=== PATIENT | male | born 1965 | race Caucasian/White ===

== ENCOUNTER 2022-03-31 11:41 | Outpatient (CLI) | payer BC, SELFPAY ==
[2022-03-31 15:26] LABS: PSA Screen* 0.97 ng/mL (0.10-4.00)
[2022-04-01 06:36] LABS: Potassium* 4.4 mmol/L (3.6-5.1)
== END 2022-03-31 11:42 | disposition home or self-care (01) ==
PROVIDERS: PCP Family Medicine; Visit Provider Family Medicine
DX: Z12.5 Encounter for screening for malignant neoplasm of prostate (principal); Z13.9 Encounter for screening, unspecified
CPT/HCPCS: 84132; 84153

== ENCOUNTER 2022-06-06 15:08 | Emergency (ER) | payer OTHER, SELFPAY ==
[2022-06-06 15:17] VITALS: BP 134/97; PULSE 90; RESP 18; TEMP 36.3; O2SAT 95; BMI 28.7
--- NOTE | 2022-06-06 15:39 | CRLHL7_ITS ---
For Patients: As a result of the Cures Act, medical imaging exams and procedure reports are released immediately into your electronic medical record. You may view this report before your referring provider. If you have questions, please contact your health care provider. HISTORY: Left elbow pain. TECHNIQUE: Three views of the left elbow. COMPARISON: 05/29/2022. FINDINGS: Tiny ossicle associated with the coronoid process of the proximal ulna is unchanged. No acute fracture or malalignment. No posterior fat pad sign to suggest elbow joint effusion. No significant degenerative change. No radiopaque foreign body or soft tissue gas. IMPRESSION: 1. Tiny ossicle associated with the coronoid process of the proximal ulna is unchanged. 2. No acute fracture or malalignment. 3. Joint space maintained. Dictated by Norberto Gamez MD @ 06/06/2022 4:10:06 PM Dictated by: Norberto Gamez MD @ 06/06/2022 16:11:35 (Electronically Signed)
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
== END 2022-06-06 17:16 | disposition home or self-care (01) ==
PROVIDERS: Emergency Provider Family Medicine; PCP Family Medicine
DX: S53.402A Unspecified sprain of left elbow, initial encounter (principal)
CPT/HCPCS: 73080; 99283; 99284

== ENCOUNTER 2022-06-30 11:35 | Outpatient (CLI) | payer OTHER, BC, SELFPAY ==
[2022-06-30 21:48] LABS: Albumin* 4.5 g/dL (3.3-5.0); Chloride* 104 mmol/L (96-114); Potassium* 4.7 mmol/L (3.6-5.1); Sodium* 140 mmol/L (135-149)
[2022-06-30 21:50] LABS: Cholesterol* 152 mg/dL (90-199); Creatinine* 1.2 mg/dL (0.5-1.5); Estimated Glomerular Filt Rate 71 ml/min
[2022-06-30 21:51] LABS: Alanine Aminotransferase* 28 U/L (4-50); Alkaline Phosphatase* 81 U/L (40-150); Aspartate Amino Transferase* 26 U/L (12-35); Bilirubin Total* 1.2 mg/dL (0.1-1.5); Blood Urea Nitrogen* 16 mg/dL (7-30); Carbon Dioxide* 30 mmol/L (20-32); Glucose* 89 mg/dL (60-115); Total Protein* 7.1 g/dL (6.0-8.3); Triglycerides* 164 mg/dL (40-149)
[2022-06-30 21:52] LABS: Calcium* 9.4 mg/dL (8.4-10.6); HDL Cholesterol* 37 mg/dL (>=40); LDL Cholesterol Calculated 82 mg/dL (<100)
[2022-07-02 23:55] LABS: Sex Hormone Binding Globulin 33 nmol/L (19-76); Testosterone, Adult Male 291 ng/dL (300-890); Testosterone, Free Calculation 52 pg/mL (47-244); Testosterone, Percentage Free 1.8 % (1.6-2.9)
== END 2022-06-30 11:36 | disposition home or self-care (01) ==
PROVIDERS: PCP Family Medicine; Visit Provider Family Medicine
DX: Z01.818 Encounter for other preprocedural examination (principal); E29.1 Testicular hypofunction; E78.00 Pure hypercholesterolemia, unspecified; I10 Essential (primary) hypertension
CPT/HCPCS: 80053; 80061; 84270; 84402; 84403

== ENCOUNTER 2022-07-06 07:12 | Day surgery (SDC) | payer BC, SELFPAY ==
[2022-07-06] VITALS (13 sets, daily range): BP systolic 101–135; BP diastolic 72–100; PULSE 66–85; RESP 16; TEMP 36.6; O2SAT 92–98; BMI 29.2
[2022-07-06] MEDS: LACTATED RINGERS 1000 ML 1,000 ML 100 ML IV (07:40)
[2022-07-06] MEDS: SODIUM CHLORIDE 0.9 % (FLUSH) 10 ML SYRINGE IVF (07:40)
--- NOTE | 2022-07-06 07:51 | SUR.PREOP ---
HOME COVID TEST NEGATIVE DONE ON 07/05/22.
[2022-07-06] MEDS: fentaNYL 100 MCG/2 ML inj IVP (08:08)
[2022-07-06] MEDS: MIDAZOLAM HCL 1 MG/ML inj IVP (08:08)
--- NOTE | 2022-07-06 08:10 | SUR.PREOP ---
TIME?OUT:?0808 PT/RN/MDA?VERIFICATION?OF?SURGICAL?SITE,?PROCEDURE,?AND?CONSENT OBTAINED?PRIOR?TO?INVASIVE?PROCEDURE.
--- NOTE | 2022-07-06 09:12 | CRLHL7_ITS ---
For Patients: As a result of the Cures Act, medical imaging exams and procedure reports are released immediately into your electronic medical record. You may view this report before your referring provider. If you have questions, please contact your health care provider. Indication: intra op left open distal bicep tendon repair Technique: One fluoroscopic image of the left elbow. Fluoroscopic time 2.5 seconds. IMPRESSION: Fluoroscopic guidance for distal biceps tendon repair. Dictated by Juan Plata MD @ 07/06/2022 2:36:38 PM (Electronically Signed)
[2022-07-06] MEDS: CEFAZOLIN 2 GM in 0.9 % SODIUM CHLORIDE Mini-bag 100 ML IVPB (09:40)
--- NOTE | 2022-07-06 10:35 | PM.ORPRC ---
Procedure Note Date of procedure: 07/06/22 Procedure: PREOPERATIVE DIAGNOSIS: 1. Left distal biceps rupture, subacute POSTOPERATIVE DIAGNOSIS: 1. Left distal biceps rupture, subacute PROCEDURE: 1. Left open distal biceps repair 2. 33949 - intraoperative fluoroscopy up to 1 hour. SURGEON: Salvador Campuzano MD LITHOPONE MILL WORKER: Efrain AGUILA (Of note, use of an assistant commissioner was critical for this case to aid in patient positioning, tissue retraction, nerve protection, arm positioning, suture management, and closure as well as splint application.) ANESTHESIA: Supraclavicular block plus MAC EBL: less than 25 TOURNIQUET: 40 minutes at 250 torr IMPLANTS: Arthrex tension slide distal Biceps Button with Peek interference screw 7 x 10mm. COMPLICATIONS: None evident INDICATIONS FOR PROCEDURE: The patient is a pleasant 56-year-old male, right hand dominant. They sustained an injury to the left distal biceps within last 1 month. Upon evaluation, they were found to have pain upon palpation near the radial tuberosity. Additionally, an MRI was obtained which showed full-thickness distal biceps tear with 1 cm of retraction of the distal stump. Given the patient's use of this extremity, recommendation was made for surgery. DESCRIPTION OF PROCEDURE: Following a thorough discussion of the risks, benefits and alternatives, consent was obtained and the left forearm was marked. The patient was brought to the operating room, placed supine on the operating table. Induction of general anesthesia was undertaken after a supraclavicular block was administered in the preop holding. Appropriate time out was performed to identify proper patient, site and procedure. The operative upper extremity was prepped and draped in the appropriate sterile fashion using ChloraPrep prep. The limb was exsanguinated and the tourniquet inflated to 250 Torr after 2 g IV Ancef was administered within 1 hour of incision preoperatively. A transverse incision was made in line with the antecubital fossa crease approximately 4 cm distal to the crease itself. Sharp incision through the skin and blunt dissection through the subcutaneous tissue allowed protection of crossing neurologic and vascular structures. Blunt dissection was taken deep for identification of the radial tuberosity. Additionally, the lateral antebrachial cutaneous nerve was identified and protected throughout the case. We then turned our attention to retrieving the biceps stump. The stump was near its insertion site, but was retracted a one cm. The stump was assessed, and found to have [good integrity. It was whipstitched utilizing a #2 FiberLoop suture to get a strong hold on the tendon. The tendon diameter was measured and found to be a diamter of 7mm. We brought the tendon back down through the typical deeper planes and deep to crossing vascularity to eventually reattach to the bicipital tuberosity. The insertion site was then prepared using a Joker elevator and rongeur. A guide pin was utilized bicortical, and an 8.0 mm reamer was then used unicortically after confirming on C-arm fluoroscopic imaging to be in appropriate position at the radial tuberosity. The suture tails were then passed through the tension slide button and the button passed through the bicortical tunnel, and flipped. It was confirmed on C-arm fluoroscopic imaging to be in the proper position and flipped completely and apposed against bone. We then utilized this tension slide manner to reapproximate the tendon to the reamed hole. Once the tendon was dunked, with the elbow flexed to roughly 90 degrees, we passed one of the limbs of the suture through the tendon and tied it with a knot pusher with 6 alternating half hitches with post switching to secure it and prevent it from sliding off the tension slide button. We then utilized the interference screw as a secondary mechanism to secure the tendon.. The tourniquet was deflated and hemostasis achieved. A thorough irrigation with normal saline was then performed followed by closure with 2-0 Vicryl and 4-0 Monocryl in subcutaneous and subcuticular layers. Dressings were applied. Posterior splint was applied. Patient awoke from anesthesia and was transferred to the Post-Anesthesia Care Unit in stable condition. PLAN: 1. Ice and elevate operative upper extremity. 2. Finger range of motion as tolerated. 3. Follow up with PA visit in 3-5 days. Wound check. Active range of motion operative elbow and forearm as tolerted. lift nothing more than a coffee cup x 8 weeks. 4. Ibuprofen, Tylenol, and/or Percocet for pain as needed.
--- NOTE | 2022-07-06 10:53 | W.ANESCHARGE ---
Anesthesia Charges Start Date/Time Anesthesia Start Date: 07/06/22 Anesthesia Start Time: 09:32 Stop Date/Time Anesthesia Stop Date: 07/06/22 Anesthesia Stop Time: 10:51 Summary Emergency: No
--- NOTE | 2022-07-06 11:00 | W.ANESCHARGE ---
Anesthesia Charges Start Date/Time Anesthesia Start Date: 07/06/22 Anesthesia Start Time: 09:32 Stop Date/Time Anesthesia Stop Date: 07/06/22 Anesthesia Stop Time: 10:51 Summary Emergency: No
--- NOTE | 2022-07-06 11:01 | P.NB_ITS ---
Nerve Block Nerve Block Time Seen by Provider: 08:13 Date Seen: 07/06/22 Type of block requested by surgeon for post-operative analgesia: axillary Side: left Time out performed: Yes Verification of patient name: Yes Verification of date of : Yes Site marking: site marked Name of person performing procedure: Sadi Continuous monitoring Was continuous monitoring of O2 sat, B/P, vehicle monitor technician, recorded every 15 minutes?: Yes Procedure Checklist: sterile prep, needles and gloves Ultrasound guided. Images saved: Yes Medications given in 5ml increments after negative aspiration: Ropivicaine %: 0.5 mL: 30 Needle gauge: 22 Patient tolerated procedure well: Yes Additional comments: Needle noted adjacent to nerve Block Charges Block Charge (with Pro Fee): Brachial Plexus Use of Ultrasound Machine for Block: Yes- US Guidance/pain block
== END 2022-07-06 12:05 | disposition home or self-care (01) ==
PROVIDERS: PCP Family Medicine; Visit Provider Orthopaedic Surgery Sports Medicine
PROC: (CPT 24341; principal; 2022-07-06 08:30)
DX: S46.212A Strain of muscle, fascia and tendon of other parts of biceps, left arm, initial encounter (principal)
CPT/HCPCS: 24341; 01716; 64415; 73070; 76000; 76942; A4580; C1713; J0690; J1100; J2250; J2370; J2405; J2704; J2795; J3010; J7120

== ENCOUNTER 2022-11-19 10:28 | Outpatient (CLI) | payer BC, SELFPAY | END 2022-11-19 10:29 | disposition home or self-care (01) | LOC: NFLDREF 11-23 09:05 | PROVIDERS: PCP Family Medicine; Referring Provider Family Medicine; Visit Provider Family Medicine | DX: R79.89 Other specified abnormal findings of blood chemistry (principal); E78.00 Pure hypercholesterolemia, unspecified; E29.1 Testicular hypofunction | CPT/HCPCS: 84270; 84402; 84403 ==

== ENCOUNTER 2023-04-01 07:57 | Outpatient (CLI) | payer BC, SELFPAY | END 2023-04-01 07:58 | disposition home or self-care (01) | LOC: NFLDREF 04-05 12:54 | PROVIDERS: PCP Family Medicine; Referring Provider Family Medicine; Visit Provider Family Medicine | DX: E29.1 Testicular hypofunction (principal); E78.00 Pure hypercholesterolemia, unspecified; I10 Essential (primary) hypertension; I49.9 Cardiac arrhythmia, unspecified; Z12.5 Encounter for screening for malignant neoplasm of prostate | CPT/HCPCS: 80053; 84153; 84270; 84402; 84403; 84443 ==

== ENCOUNTER 2023-04-23 09:41 | Outpatient (CLI) | payer BC, SELFPAY | END 2023-04-23 09:42 | disposition home or self-care (01) | LOC: RAD 09:42 | PROVIDERS: PCP Family Medicine; Visit Provider Family Medicine | DX: I49.9 Cardiac arrhythmia, unspecified (principal); I35.1 Nonrheumatic aortic (valve) insufficiency; I34.0 Nonrheumatic mitral (valve) insufficiency | CPT/HCPCS: 93306 ==

== ENCOUNTER 2023-12-24 08:09 | Outpatient (CLI) | payer BC, SELFPAY | END 2023-12-24 08:10 | disposition home or self-care (01) | LOC: NFLDREF 12-28 16:51 | PROVIDERS: PCP Family Medicine; Referring Provider Family Medicine; Visit Provider Family Medicine | DX: Z00.00 Encounter for general adult medical examination without abnormal findings (principal); I10 Essential (primary) hypertension; E29.1 Testicular hypofunction; R79.89 Other specified abnormal findings of blood chemistry; Z12.5 Encounter for screening for malignant neoplasm of prostate; Z13.1 Encounter for screening for diabetes mellitus; Z13.6 Encounter for screening for cardiovascular disorders | CPT/HCPCS: 80053; 80061; 84270; 84402; 84403; G0103 ==

== ENCOUNTER 2024-04-13 08:12 | Outpatient (CLI) | payer BC, SELFPAY ==
--- OUTSIDE RECORDS SUMMARY | 2024-04-16 18:57 | XMS_ITS | Clinical Summary ---
Author Organization [facility] Address [address] [place] [id number] Care Team Providers Care Personal Driver Name Role Phone Unavailable Primary Care Provider Unavailabl e Allergies Active Allergy Reactions Criticality Noted Date Comments Esomeprazole Magnesium Trihydrate nexium-rash Omeprazole Rash Low 01/29/2014 Medications Medication Sig Dispensed Refills Start Date End Date Status RABEprazole (ACIPHEX) 20 MG EC tabletIndications:Gas troesophageal reflux disease with esophagitis Take 1 tablet (20 mg) by mouth 2 times daily 180 tablet 4 08/09/2017 Active ranitidine (ZANTAC) 150 MG tablet take 1 tablet by mouth before bed 3 03/24/2019 Active hydrochlorothiazide (HYDRODIURIL) 12.5 MG tabletIndications:Hyp ertension goal BP (blood pressure) < 140/90 Take 1 tablet (12.5 mg) by mouth daily 90 tablet 3 04/10/2019 Active guaiFENesin-codeine (ROBITUSSIN AC) 100-10 MG/5ML solutionIndications:C ough Take 5-10 mLs by mouth every 4 hours as needed 120 mL 08/05/2019 Active albuterol (PROAIR HFA/PROVENTIL HFA/VENTOLIN HFA) 108 (90 Base) MCG/ACT inhalerIndications:Co ugh Inhale 2 puffs into the lungs every 6 hours 1 Inhaler 08/05/2019 Active amLODIPine (NORVASC) 5 MG tabletIndications:Hyp ertension goal BP (blood pressure) < 140/90 Take 1 tablet (5 mg) by mouth daily 90 tablet 04/01/2020 Active Active Problems Problem Noted Date Diagnosed Date Persistent cough 08/15/2018 Lumbar radiculopathy 10/31/2015 GERD (gastroesophageal reflux disease) 4 Hypertension goal BP (blood pressure) < 140/90 0 10/23/2013 Resolved Problems Problem Noted Date Diagnosed Date Resolved Date Right elbow pain 11/03/2016 11/17/2016 Chronic pain 04/29/2016 08/06/2017 Overview: Patient is followed by David Ventura MD for ongoing prescription of pain medication. All refills - From ortho Medication(s): see refill list from ortho Maximum quantity per month: see refill Clinic visit frequency required: Q 3 months Controlled substance agreement: Encounter-Level CSA: There are no encounter-level csa. Pain Clinic evaluation in the past: No DIRE Total Score(s): No flowsheet data found. Last [facility] website verification: none [email or web address] Midline low back pain with s ciatica, sciatica laterality unspecified 10/10/2015 08/06/2017 HTN, goal below 140/90 08/17/201110/23 Impetigo 08/17/2011 10/23/2013 Cellulitis, face 08/17/2011 10/23/2013 Hypercholesteremia 10/10/2010 4 Essential hypertension, benign 10/10/2010 10/23/2013 CARDIOVASCULAR SCREENING; LD L GOAL LESS THAN 130 05/18/2010 07/30/2015 Esophageal reflux 07/12/2006 10/23/2013 Immunizations Name Administration Dates Next Due Influenza Vaccine, 6+MO IM ( QUADRIVALENT W/PRESERVATIVES) 05/31/2018 TDAP Vaccine (Adacel) 01/25/2019,08/15/2008 Family History Medical History Relation Comments Hypertension Mother Diabetes Paternal Grandfather Prostate Cancer Paternal Grandfather Colon Cancer No family hx of Relation Status Comments Father Alive Mother Alive Paternal Grandfather Social History Tobacco Use Types Packs/Day Years Used Date Smoking Tobacco: Former Cigarettes 1 7 0 12/17/1982 - 12/17/1989 Smokeless Tobacco: Never Alcohol Use Standard Drinks/Week Comments Yes 2 (1 standard drink = 0.6 oz pur e alcohol) PHQ-2 Answer Date Recorded PHQ-2 Score 0 07/26/2018 Adolescent Education Answer Date Record ed Getting School Help Needed Not on file 04/18 Sex and Gender Information Value Date Recorded Sex Assigned at Not on file Gender Identity Not on file Sexual Orientation Not on file Last Filed Vital Signs Vital Sign Reading Time Taken Comments Blood Pressure 136/86 08/05/2019 3:40 PM SENIOR LOAN PROCESSOR Pulse 90 08/05/2019 3:40 PM SENIOR LOAN PROCESSOR Temperature 37.5 ??C (99.5 ??F) 08/05/2019 3:40 PM CS T Respiratory Rate 16 08/05/2019 3:40 PM SENIOR LOAN PROCESSOR Oxygen Saturation 100% 08/05/2019 3:40 PM SENIOR LOAN PROCESSOR Inhaled Oxygen Concentration - - Weight 91.6 kg (202 lb) 08/05/2019 3:40 PM SENIOR LOAN PROCESSOR Height 177.8 cm (5' 10) 04/10/2019 1:45 PM CDT Body Mass Index 28.98 04/10/2019 1:45 PM CDT Plan of Treatment Not on file Medical Devices Implanted Type Area Aerospace Project Manager Device Identifier Shelf Expiration Date Model / Serial / Lot Graft Bone Foam Pack Vitoss 5ml Bio Active Implanted:Qty : 1 on 10/31/2015 by Greg Zuniga MD at [facility] N/A: Spine Lumbar ORTHOVITA 02/15/[id number] / / [id number] Impulse Implanted:Qty : 1 on 10/31/2015 by Grge Zuniga MD at [facility] N/A: Spine Lumbar Graft Bone Crush Canc 15ml [id number] Implanted:Qty : 1 on 10/31/2015 by Greg Zuniga MD at [facility] N/A: Spine Lumbar [employer]OSKE[employer] 07/02/2018 [id number] / [id number] / Graft Allograft Nucel Xl 2.5ml [id number] Implanted:Qty : 1 on 10/31/2015 by Greg Zuniga MD at [facility] N/A: Spine Lumbar [employer] 03/21/2016 NC-[id number] / [id number] / Imp Cage Strk [place]-L [id number] Implanted:Qty : 1 on 10/31/2015 by Greg Zuniga MD at [facility] N/A: Spine Lumbar [employer] [id number] / / [id number] Imp Scr Strk Bone [place]-L 6.0x30mm [id number] Implanted:Qty : 3 on 10/31/2015 by Greg Zuniga MD at [facility] N/A: Spine Lumbar [employer] [id number] / / [id number] Imp Plate Strk [place]-L Locking [id number] Implanted:Qty : 1 on 10/31/2015 by Greg Zuniga MD at [facility] N/A: Spine Lumbar [employer] [id number] / / 5 [id number] 7.5mm X 50 Mmes2 Short Screw Implanted:Qty : 2 on 10/31/2015 by Greg Zuniga MD at [facility] N/A: Spine Lumbar CATHY / / [id number] 40mm Vahid Implanted:Qty : 1 on 10/31/2015 by Greg Zuniga MD at [facility] N/A: Spine Lumbar CATHY [id number] / / [id number] Blockers Implanted:Qty : 2 on 10/31/2015 by Greg Zuniga MD at [facility] N/A: Spine Lumbar CATHY [id number] / / [id number] Advance Directives For more information, please contact: [phone] * Full Code (Latest Code Status on File) Date Activated Date Inactivated Comments 10/31/2015 1:34 PM 11/01/2015 10:52 PM
--- OUTSIDE RECORDS SUMMARY | 2024-04-16 18:57 | XMS_ITS | Encounter Summary ---
Author Organization [facility] Address [address] [place] [address] Care Team Providers Care Pan Devulcanizer Name Role Phone David Ventura MD Primary Care Provider [phone] David Ventura MD Unavailable [phone] Encounter Details Date Type Department Care Team (Late st Contact Info) Description 05/30/[address] [facility] [id number] [place] [phone] [place] [address] [place] [address] Social History Tobacco Use Types Packs/Day Years Used Date Smoking Tobacco: Former Cigarettes 1 7 0 12/17/1982 - 12/17/1989 Smokeless Tobacco: Never Alcohol Use Standard Drinks/Week Comments Yes 2 (1 standard drink = 0.6 oz pur e alcohol) PHQ-2 Answer Date Recorded PHQ-2 Score 0 07/26/2018 Sex and Gender Information Value Date Recorded Sex Assigned at Not on file Gender Identity Not on file Sexual Orientation Not on file documented as of this encounter Plan of Treatment Not on file documented as of this encounter Visit Diagnoses Not on filedocumented in this encounter Care Teams Pan Devulcanizer Relationship Specialty Start Date End Date David Ventura MD PCP - General Family Practice 03/14/14 05/17/22 [place] [address] [place] [address] Assigned PCP 11/15/13 04/03/22 documented as of this encounter
--- OUTSIDE RECORDS SUMMARY | 2024-04-16 18:57 | XMS_ITS | Encounter Summary ---
Author Organization [facility] Address [address] [place] [address] Care Team Providers Care Software Verification Engineer Name Role Phone David Ventura MD Primary Care Provider [phone] David Ventura MD Unavailable [phone] David Ventura MD Unavailable [phone] Reason for Visit * Reason Onset Date Comments MyChart Communication 08/07/2017 Encounter Details Date Type Department Care Team (Late st Contact Info) Description 08/07/2017 MyC Medical Advice [facility] [address] [place] [phone] [place] [address] [place] [address] MyChart Communication Social History Tobacco Use Types Packs/Day Years Used Date Smoking Tobacco: Former Cigarettes 1 7 0 12/17/1982 - 12/17/1989 Smokeless Tobacco: Never Alcohol Use Standard Drinks/Week Comments Yes 0 (1 standard drink = 0.6 oz pur e alcohol) Sex and Gender Information Value Date Recorded Sex Assigned at Not on file Gender Identity Not on file Sexual Orientation Not on file documented as of this encounter Miscellaneous Notes * Telephone Encounter - David Ventura MD - 08/09/2017 7:37 AM CST Can try BID for 1-2 months - this is not recommended dose for long-term use, however. Should go back to daily after 1-2 months. If continues to have breakthrough symptoms I would recommend upper endoscopy. AL VAULT MAKER * Telephone Encounter - Estelle Beard RN - 08/09/2017 7:24 AM CST Please advise. Do you want an appt to discuss this? Estelle Beard RN, BSN AL VAULT MAKER documented in this encounter Plan of Treatment Not on file documented as of this encounter Visit Diagnoses Diagnosis Gastroesophageal reflux disease with esophagitis documented in this encounter Care Teams Software Verification Engineer Relationship Specialty Start Date End Date David Ventura MD PCP - General Family Practice 03/14/14 05/17/22 [place] [address] [place] [address] PCP - Assigned PCP 11/15/13 09/20/18 [place] [id number] [place] [address] Assigned PCP 11/15/13 04/03/22 documented as of this encounter
--- OUTSIDE RECORDS SUMMARY | 2024-04-16 18:57 | XMS_ITS | Continuity of Care Document ---
Author Name [facility] Organization [facility] Care Team Providers Care Supervisor [place] Name Role Phone [facility] Unavailable Unavailable Problems Combined list of problems from Department of Defense and Veterans Affairs facilities. It does not include entries that were removed or entered in error. 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 Condition [facility] Body mass index 25-29 - overweight Active Condition Oct 02, 2022 En tered By: CARISSA BACON Comment: to complete SLEEP STUDY [facility] Exposure to Potentially Hazardous Substance ([facility] [place] [id number] ) Active Condition Oct 04, 2022 En tered By: CARISSA BACON Comment: was exposed to paint, jet fuel, oils and has had sound exposure [facility] Family social history Active Condition Oct 02, 2022 En tered By: CARISSA BACON Comment: 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, 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 Deployed to [employer] for short time [facility] H/O: surgery Active Condition Oct 03, 2021 Entered By: CARISSA BACON Comment: s/p endoscopy at [facility] 09/25/2021Oct 02, 2022 Entered By: CARISSA BACON Comment: colonoscopy normal at age 51 reports recheck is due at age 61Oct 10, 2021 Entered By: CARISSA BACON Comment: s/p L4-5 Decompressive lumbar laminectomyOct 10, 2021 Entered By: CARISSA BACON Comment: S/p Tonsillectomy, Uvulopalatopharyngoplast [id number] Entered By: CARISSA BACON Comment: s/p turbinate reduction 2022 Entered By: CARISSA BACON Comment: S/P HIATAL HERNIA REPAIR- FUNDAL PLICATION at [facility] 2022 Entered By: CARISSA BACON Comment: s/p LEFT Elbow tendon repair 06/2022 [facility] Hiatal hernia Active Condition Sep Entered By: CARISSA BACON Comment: s/p FUNDAL PLICATION 11/2021 [facility] HTN - Hypertension ([facility] [place] [id number]) Active Condition Oct 13, 2022 Entered By: CARISSA BACON Comment: SLEEP CONSULT REQUESTED 09/2022 [facility] Hyperlipidemia (SCT [id number]) Active Condition [facility] Kidney Stone ([facility] [place] [id number]) Active Condition [facility] Male hypogonadism Active Condition Mar 06, 2024 En tered By: CARISSA BACON Comment: [facility]aged [facility] Palpitations Active Condition Oct 13, 2022 Entered By: CARISSA BACON Comment: SEE RESULT Letter 10/13/22 for ZIO REPORT [facility] Tinnitus Active Condition Jan 02 Entered By: CARISSA BACON Comment: TOTAL SC 10%; TINNITUS (10%-SC) [facility] Diagnosis: ICD-10-CM E29.1 Testicular hypofunction Active Diagnosis [facility] Diagnosis: ICD-10-CM Z00.01 Encounter for general adult medical exam w abnormal findings Active Diagnosis [facility] Diagnosis: ICD-10-CM R00.2 Palpitations Active Diagnosis [facility] Diagnosis: ICD-10-CM Z23 Encounter for immunization Active Diagnosis [facility] Diagnosis: ICD-10-CM Z13.6 Encounter for screening for cardiovascular disorders Active Diagnosis [facility] Medications Combined list of outpatient medications from Department of Defense and Veterans Affairs facilities.Medications provided include 1) outpatient medications from the last 15 months, and 2) patient-reported medications. Medication Details Route Status Patient Instructions Prescription Expires Prescription Number Last Dispense Date Ordering Provider Order Date Order Qty Source AMLODIPINE BESYLATE 10MG TAB AMLODIPI NE BESYLATE 10MG TAB Non-VA TAKE ONE TABLET BY MOUTH EVERY DAY FOR BLOOD PRESSURE Oct 01, 2023 [facility] Document ed by: GLORIA BACON S Document ed at: [facility] ORAL ACTIVE TIANA BACON 2023 [facility] RABEPRAZOLE NA 20MG TAB,EC RABEPRAZ OLE NA 20MG TAB,EC Non-VA TAKE ONE TABLET BY MOUTH EVERY DAY Oct 03, 2021 Non-VA Document ed by: GLORIA BACON S Document ed at: [facility] BROOKS ORAL ACTIVE TIANA BACON 2021 [facility] SIMVASTATIN 20MG TAB SIMVASTA TIN 20MG TAB Non-VA TAKE ONE TABLET BY MOUTH AT BEDTIME FOR CHOLESTE ROL Oct 01, 2023 Non-VA Document ed by: GLORIA BACON S Document ed at: [facility] BROOKS ORAL ACTIVE TIANA BACON 2023 [facility] TESTOSTERON E CYPIONATE 200MG/ML INJ,1ML (IN OIL) TESTOSTE CAROLE CYPIONAT E 200MG/ML INJ,1ML (IN OIL) Non-VA INJECT 0.5ML (100MG) INTRAMUS CULAR EVERY 4 WEEKS Oct 03, 2021 Non-VA Document ed by: GLORIA BACON S Document ed at: [facility] BROOKS INTRAM USCULA R ACTIVE TIANA BACON 2021 [facility] VALSARTAN 80MG TAB VALSARTA N 80MG TAB Non-VA TAKE ONE TABLET BY MOUTH EVERY DAY FOR HEART PROTECTI ON Oct 01, 2023 Non-VA Document ed by: GLORIA BACON Document ed at: [facility] ORAL ACTIVE TIANA BACON 2023 [facility] Allergies, Adverse Reactions, Alerts Combined list of allergies from Department of Defense and Veterans [facility] facilities. It does not include entries that were removed or entered in error. Substance Category Reaction Severity Reaction type Status Date Reported Comments Source ESOMEPRAZOLE MAGNESIUM Propensity to adverse reactions to drug (finding) Eruption active 2 [facility] OMEPRAZOLE Propensity to adverse reactions to drug (finding) Eruption active 2 [facility] Immunizations Combined list of available immunizations from the Department of [facility] and Veterans [facility] facilities. Immunization Series Date Given Administered By Site Reaction Lot Number CVX Code Drug Hearing Health Technician Status Comments Source ZOSTER RECOMBINANT 2 2022 JOEL FRY LEFT DELTO ID [id number] 187 complet ed [id number] 12/14/23 [facility] ZOSTER RECOMBINANT 1 2022 ANDREW FOSTER LEFT DELTO ID [id number] 187 complet ed [id number] 12/13/23 [facility] TDAP 2018 115 complet ed [facility] INFLUENZA, SPLIT VIRUS, QUADRIVALENT, PRESERVATIVE 2017 158 complet ed [facility] TDAP 2008 115 complet ed [facility] Results Combined list of recent chemistry, hematology and other laboratory results from Department of [facility] and Veterans Affairs, ranging from 15 months to all on record, depending upon the facility. Order Name Results Value Reference Range Date Interpretation Specimen Comments Source BASIC METABOLIC PANEL+MG CREATININE [MASS/VOLUM E] IN SERUM OR PLASMA 0.9 mg/dL 0.7 - 1.2 10/02 Specimen Type: PLASMA Comment: Elevated triglycerid e result from a non-fasting specimen should be interpreted with caution. A fasting panel is recommended for accurate triglycerid es when trigs are >200 from a non-fasting specimen. Ordering Provider: CARISSA BACON Report Released Date/Time: Oct 02, 2022 01:51 PM Reporting Lab: [facility] [address] Performing Lab: [facility] [address] [facility] BASIC METABOLIC PANEL+MG UREA NITROGEN [MASS/VOLUM E] IN SERUM OR PLASMA 10 mg/dL 8 - 26 10/02 Specimen Type: PLASMA Comment: Elevated triglycerid e result from a non-fasting specimen should be interpreted with caution. A fasting panel is recommended for accurate triglycerid es when trigs are >200 from a non-fasting specimen. Ordering Provider: CARISSA BACON Report Released Date/Time: Oct 02, 2022 01:51 PM Reporting Lab: [facility] [address] Performing Lab: [facility] [address] [facility] BASIC METABOLIC PANEL+MG GLUCOSE [MASS/VOLUM E] IN SERUM OR PLASMA 95 mg/dL 70 - 100 10/02 Specimen Type: PLASMA Comment: Elevated triglycerid e result from a non-fasting specimen should be interpreted with caution. A fasting panel is recommended for accurate triglycerid es when trigs are >200 from a non-fasting specimen. Ordering Provider: CARISSA BACON Report Released Date/Time: Oct 02, 2022 01:51 PM Reporting Lab: [facility] [address] Performing Lab: [facility] [address] [facility] BASIC METABOLIC PANEL+MG SODIUM [MOLES/VOLU ME] IN SERUM OR PLASMA 141 mmol/L 136 - 145 10/02 Specimen Type: PLASMA Comment: Elevated triglycerid e result from a non-fasting specimen should be interpreted with caution. A fasting panel is recommended for accurate triglycerid es when trigs are >200 from a non-fasting specimen. Ordering Provider: CARISSA BACON Report Released Date/Time: Oct 02, 2022 01:51 PM Reporting Lab: [facility] [address] Performing Lab: [facility] [address] [facility] BASIC METABOLIC PANEL+MG POTASSIUM [MOLES/VOLU ME] IN SERUM OR PLASMA 3.9 mmol/L 3.5 - 5.1 10/02 Specimen Type: PLASMA Comment: Elevated triglycerid e result from a non-fasting specimen should be interpreted with caution. A fasting panel is recommended for accurate triglycerid es when trigs are >200 from a non-fasting specimen. Ordering Provider: CARISSA BACON Report Released Date/Time: Oct 02, 2022 01:51 PM Reporting Lab: [facility] [address] Performing Lab: [facility] [address] [facility] BASIC METABOLIC PANEL+MG CHLORIDE [MOLES/VOLU ME] IN SERUM OR PLASMA 107 mmol/L 98 - 107 10/02 Specimen Type: PLASMA Comment: Elevated triglycerid e result from a non-fasting specimen should be interpreted with caution. A fasting panel is recommended for accurate triglycerid es when trigs are >200 from a non-fasting specimen. Ordering Provider: CARISSA BACON Report Released Date/Time: Oct 02, 2022 01:51 PM Reporting Lab: [facility] [address] Performing Lab: [facility] [address] [facility] BASIC METABOLIC PANEL+MG CARBON DIOXIDE, TOTAL [MOLES/VOLU ME] IN SERUM OR PLASMA 25 mmol/L 22 - 29 10/02 Specimen Type: PLASMA Comment: Elevated triglycerid e result from a non-fasting specimen should be interpreted with caution. A fasting panel is recommended for accurate triglycerid es when trigs are >200 from a non-fasting specimen. Ordering Provider: CARISSA BACON Report Released Date/Time: Oct 02, 2022 01:51 PM Reporting Lab: [facility] [address] Performing Lab: [facility] [address] [facility] BASIC METABOLIC PANEL+MG CALCIUM [MASS/VOLUM E] IN SERUM OR PLASMA 8.9 mg/dL 8.4 - 10.2 10/02 Specimen Type: PLASMA Comment: Elevated triglycerid e result from a non-fasting specimen should be interpreted with caution. A fasting panel is recommended for accurate triglycerid es when trigs are >200 from a non-fasting specimen. Ordering Provider: CARISSA BACON Report Released Date/Time: Oct 02, 2022 01:51 PM Reporting Lab: [facility] [address] Performing Lab: [facility] [address] [facility] BASIC METABOLIC PANEL+MG MAGNESIUM [MASS/VOLUM E] IN SERUM OR PLASMA 1.9 mg/dL 1.6 - 2.6 10/02 Specimen Type: PLASMA Comment: Elevated triglycerid e result from a non-fasting specimen should be interpreted with caution. A fasting panel is recommended for accurate triglycerid es when trigs are >200 from a non-fasting specimen. Ordering Provider: CARISSA BACON Report Released Date/Time: Oct 02, 2022 01:51 PM Reporting Lab: [facility] [address] Performing Lab: [facility] [address] [facility] BASIC METABOLIC PANEL+MG ANION GAP IN SERUM OR PLASMA 9 mmol/L 5 - 15 10/02 Specimen Type: PLASMA Comment: Elevated triglycerid e result from a non-fasting specimen should be interpreted with caution. A fasting panel is recommended for accurate triglycerid es when trigs are >200 from a non-fasting specimen. Ordering Provider: CARISSA BACON Report Released Date/Time: Oct 02, 2022 01:51 PM Reporting Lab: [facility] [address] Performing Lab: [facility] [address] [facility] BASIC METABOLIC PANEL+MG GLOMERULAR FILTRATION RATE/1.73 SQ M.PREDICTED [VOLUME RATE/AREA] IN SERUM, PLASMA OR BLOOD BY CREATININE- BASED FORMULA (CKD-EPI) >90 60 10/02 Specimen Type: PLASMA Comment: Elevated triglycerid e result from a non-fasting specimen should be interpreted with caution. A fasting panel is recommended for accurate triglycerid es when trigs are >200 from a non-fasting specimen. Ordering Provider: CARISSA BACON Report Released Date/Time: Oct 02, 2022 01:51 PM Reporting Lab: [facility] [address] Performing Lab: [facility] [address] [facility] CBC & DIFF LEUKOCYTES [#/VOLUME] IN BLOOD BY AUTOMATED COUNT 7.00 10*3/u L 4.0 - 11.0 10/02 Specimen Type: BLOOD Comment: Automated Differentia l Performed Ordering Provider: CARISSA BACON Report Released Date/Time: Oct 02, 2022 01:51 PM Reporting Lab: [facility] [address] Performing Lab: [facility] [address] [facility] CBC & DIFF ERYTHROCYTE S [#/VOLUME] IN BLOOD BY AUTOMATED COUNT 4.81 10*6/u L 4.6 - 6.2 10/02 Specimen Type: BLOOD Comment: Automated Differentia l Performed Ordering Provider: CARISSA BACON Report Released Date/Time: Oct 02, 2022 01:51 PM Reporting Lab: [facility] [address] Performing Lab: [facility] [address] [facility] CBC & DIFF HEMOGLOBIN [MASS/VOLUM E] IN BLOOD 15.2 g/dL 13.5 - 17.9 10/02 Specimen Type: BLOOD Comment: Automated Differentia l Performed Ordering Provider: CARISSA BACON Report Released Date/Time: Oct 02, 2022 01:51 PM Reporting Lab: [facility] [address] Performing Lab: [facility] [address] [facility] CBC & DIFF HEMATOCRIT [VOLUME FRACTION] OF BLOOD BY AUTOMATED COUNT 43.0 41 - 54 10/02 Specimen Type: BLOOD Comment: Automated Differentia l Performed Ordering Provider: CARISSA BACON Report Released Date/Time: Oct 02, 2022 01:51 PM Reporting Lab: [facility] [address] Performing Lab: [facility] [address] [facility] CBC & DIFF MCV [ENTITIC VOLUME] BY AUTOMATED COUNT 89.4 fL 80 - 100 10/02 Specimen Type: BLOOD Comment: Automated Differentia l Performed Ordering Provider: CARISSA BACON Report Released Date/Time: Oct 02, 2022 01:51 PM Reporting Lab: [facility] [address] Performing Lab: [facility] [address] [facility] CBC & DIFF MCH [ENTITIC MASS] BY AUTOMATED COUNT 31.6 pg 27 - 33 10/02 Specimen Type: BLOOD Comment: Automated Differentia l Performed Ordering Provider: CARISSA BACON Report Released Date/Time: Oct 02, 2022 01:51 PM Reporting Lab: [facility] [address] Performing Lab: [facility] [address] [facility] CBC & DIFF MCHC [MASS/VOLUM E] BY AUTOMATED COUNT 35.3 g/dL 32.0 - 37.5 10/02 Specimen Type: BLOOD Comment: Automated Differentia l Performed Ordering Provider: CARISSA BACON Report Released Date/Time: Oct 02, 2022 01:51 PM Reporting Lab: [facility] [address] Performing Lab: [facility] [address] [facility] CBC & DIFF PLATELETS [#/VOLUME] IN BLOOD BY AUTOMATED COUNT 252 10*3/u L 150 - 400 10/02 Specimen Type: BLOOD Comment: Automated Differentia l Performed Ordering Provider: CARISSA BACON Report Released Date/Time: Oct 02, 2022 01:51 PM Reporting Lab: [facility] [address] Performing Lab: [facility] [address] [facility] CBC & DIFF PLATELET MEAN VOLUME [ENTITIC VOLUME] IN BLOOD BY AUTOMATED COUNT 10.5 fL 7.4 - 10.4 10/02 H Specimen Type: BLOOD Comment: Automated Differentia l Performed Ordering Provider: CARISSA BACON Report Released Date/Time: Oct 02, 2022 01:51 PM Reporting Lab: [facility] [address] Performing Lab: [facility] [address] [facility] CBC & DIFF NEUTROPHILS /100 LEUKOCYTES IN BLOOD BY MANUAL COUNT 54.1 10/02 Specimen Type: BLOOD Comment: Automated Differentia l Performed Ordering Provider: CARISSA BACON Report Released Date/Time: Oct 02, 2022 01:51 PM Reporting Lab: [facility] [address] Performing Lab: [facility] [address] [facility] CBC & DIFF LYMPHOCYTES /100 LEUKOCYTES IN BLOOD BY MANUAL COUNT 30.0 10/02 Specimen Type: BLOOD Comment: Automated Differentia l Performed Ordering Provider: CARISSA BACON Report Released Date/Time: Oct 02, 2022 01:51 PM Reporting Lab: [facility] [address] Performing Lab: [facility] [address] [facility] CBC & DIFF MONOCYTES/1 00 LEUKOCYTES IN BLOOD BY AUTOMATED COUNT 9.3 10/02 Specimen Type: BLOOD Comment: Automated Differentia l Performed Ordering Provider: CARISSA BACON Report Released Date/Time: Oct 02, 2022 01:51 PM Reporting Lab: [facility] [address] Performing Lab: [facility] [address] [facility] CBC & DIFF EOSINOPHILS /100 LEUKOCYTES IN BLOOD BY AUTOMATED COUNT 5.1 10/02 Specimen Type: BLOOD Comment: Automated Differentia l Performed Ordering Provider: CARISSA BACON Report Released Date/Time: Oct 02, 2022 01:51 PM Reporting Lab: [facility] [address] Performing Lab: [facility] [address] [facility] CBC & DIFF BASOPHILS/1 00 LEUKOCYTES IN BLOOD BY MANUAL COUNT 0.9 10/02 Specimen Type: BLOOD Comment: Automated Differentia l Performed Ordering Provider: CARISSA BACON Report Released Date/Time: Oct 02, 2022 01:51 PM Reporting Lab: [facility] [address] Performing Lab: [facility] [address] [facility] CBC & DIFF ERYTHROCYTE DISTRIBUTIO N WIDTH [RATIO] BY AUTOMATED COUNT 12.4 11.5 - 14.5 10/02 Specimen Type: BLOOD Comment: Automated Differentia l Performed Ordering Provider: CARISSA BACON Report Released Date/Time: Oct 02, 2022 01:51 PM Reporting Lab: [facility] [address] Performing Lab: [facility] [address] [facility] CBC & DIFF LYMPHOCYTES [#/VOLUME] IN BLOOD BY AUTOMATED COUNT 2.10 10*3/u L 1.0 - 4.0 10/02 Specimen Type: BLOOD Comment: Automated Differentia l Performed Ordering Provider: CARISSA BACON Report Released Date/Time: Oct 02, 2022 01:51 PM Reporting Lab: [facility] [address] Performing Lab: [facility] [address] [facility] CBC & DIFF MONOCYTES [#/VOLUME] IN BLOOD BY AUTOMATED COUNT 0.65 10*3/u L 0.1 - 1.0 10/02 Specimen Type: BLOOD Comment: Automated Differentia l Performed Ordering Provider: CARISSA BACON Report Released Date/Time: Oct 02, 2022 01:51 PM Reporting Lab: [facility] [address] Performing Lab: [facility] [address] [facility] CBC & DIFF NEUTROPHILS [#/VOLUME] IN BLOOD BY AUTOMATED COUNT 3.79 10*3/u L 2.0 - 7.7 10/02 Specimen Type: BLOOD Comment: Automated Differentia l Performed Ordering Provider: CARISSA BACON Report Released Date/Time: Oct 02, 2022 01:51 PM Reporting Lab: [facility] [address] Performing Lab: [facility] [address] [facility] CBC & DIFF EOSINOPHILS [#/VOLUME] IN BLOOD BY AUTOMATED COUNT 0.36 10*3/u L 0 - 0.5 10/02 Specimen Type: BLOOD Comment: Automated Differentia l Performed Ordering Provider: CARISSA BACON Report Released Date/Time: Oct 02, 2022 01:51 PM Reporting Lab: [facility] [address] Performing Lab: [facility] [address] [facility] CBC & DIFF BASOPHILS [#/VOLUME] IN BLOOD BY AUTOMATED COUNT 0.06 10*3/u L 0 - 0.2 10/02 Specimen Type: BLOOD Comment: Automated Differentia l Performed Ordering Provider: CARISSA BACON Report Released Date/Time: Oct 02, 2022 01:51 PM Reporting Lab: [facility] [address] Performing Lab: [facility] [address] [facility] CBC & DIFF IG(META,MYE LO,PRO) 0.6 10/02 Specimen Type: BLOOD Comment: Automated Differentia l Performed Ordering Provider: CARISSA BACON Report Released Date/Time: Oct 02, 2022 01:51 PM Reporting Lab: [facility] [address] Performing Lab: [facility] [address] [facility] CBC & DIFF IMMATURE GRANULOCYTE S [PRESENCE] IN BLOOD BY AUTOMATED COUNT 0.04 10*3/u L 0 - 0.1 10/02 Specimen Type: BLOOD Comment: Automated Differentia l Performed Ordering Provider: CARISSA BACON Report Released Date/Time: Oct 02, 2022 01:51 PM Reporting Lab: [facility] [address] Performing Lab: [facility] [address] [facility] TSH W/REFLEX TO FREE T4 THYROTROPIN [UNITS/VOLU ME] IN SERUM OR PLASMA 0.76 u[IU]/ mL 0.35 - 4.94 10/02 Specimen Type: PLASMA Comment: Elevated triglycerid e result from a non-fasting specimen should be interpreted with caution. A fasting panel is recommended for accurate triglycerid es when trigs are >200 from a non-fasting specimen. Ordering Provider: CARISSA BACON Report Released Date/Time: Oct 02, 2022 01:51 PM Reporting Lab: [facility] [address] Performing Lab: [facility] [address] [facility] HEMOGLOBI N A1C HEMOGLOBIN A1C/HEMOGLO BIN.TOTAL IN BLOOD 5.1 4.0 - 6.0 10/02 Specimen Type: BLOOD Comment: Values obtained from A1C measurement s can vary. For typical A1C assays, a reported value of 7.0 could actually be between 6.7 and 7.3 if measured by a reference method. A reported value of 9.0 could actually be between 8.7 and 9.3. Ref: http://www. ngsp.org/[place] Pdata.asp Ordering Provider: CARISSA BACON Report Released Date/Time: Oct 02, 2022 01:51 PM Reporting Lab: [facility] [address] Performing Lab: [facility] [address] [facility] LIPID PANEL,NON -FASTING CHOLESTEROL [MASS/VOLUM E] IN SERUM OR PLASMA 195 mg/dL <199 - 199 10/02 Specimen Type: PLASMA Comment: Elevated triglycerid e result from a non-fasting specimen should be interpreted with caution. A fasting panel is recommended for accurate triglycerid es when trigs are >200 from a non-fasting specimen. Ordering Provider: CARISSA BACON Report Released Date/Time: Oct 02, 2022 01:51 PM Reporting Lab: [facility] [address] Performing Lab: [facility] [address] [facility] LIPID PANEL,NON -FASTING CHOLESTEROL IN HDL [MASS/VOLUM E] IN SERUM OR PLASMA 35 mg/dL 40 10/02 L Specimen Type: PLASMA Comment: Elevated triglycerid e result from a non-fasting specimen should be interpreted with caution. A fasting panel is recommended for accurate triglycerid es when trigs are >200 from a non-fasting specimen. Ordering Provider: CARISSA BACON Report Released Date/Time: Oct 02, 2022 01:51 PM Reporting Lab: [facility] [address] Performing Lab: [facility] [address] [facility] LIPID PANEL,NON -FASTING CHOLESTEROL IN LDL [MASS/VOLUM E] IN SERUM OR PLASMA BY CALCULATION 103 mg/dL <99 - 99 10/02 H Specimen Type: PLASMA Comment: Elevated triglycerid e result from a non-fasting specimen should be interpreted with caution. A fasting panel is recommended for accurate triglycerid es when trigs are >200 from a non-fasting specimen. Ordering Provider: CARISSA BACON Report Released Date/Time: Oct 02, 2022 01:51 PM Reporting Lab: [facility] [address] Performing Lab: [facility] [address] [facility] LIPID PANEL,NON -FASTING CHOLESTEROL IN VLDL [MASS/VOLUM E] IN SERUM OR PLASMA BY CALCULATION 57 mg/dL <29 - 29 10/02 H Specimen Type: PLASMA Comment: Elevated triglycerid e result from a non-fasting specimen should be interpreted with caution. A fasting panel is recommended for accurate triglycerid es when trigs are >200 from a non-fasting specimen. Ordering Provider: CARISSA BACON Report Released Date/Time: Oct 02, 2022 01:51 PM Reporting Lab: [facility] [id number] Performing Lab: [facility] [id number] [facility] LIPID PANEL,NON -FASTING CHOLESTEROL NON HDL [MASS/VOLUM E] IN SERUM OR PLASMA 160 mg/dL <129 - 129 10/02 H Specimen Type: PLASMA Comment: Elevated triglycerid e result from a non-fasting specimen should be interpreted with caution. A fasting panel is recommended for accurate triglycerid es when trigs are >200 from a non-fasting specimen. Ordering Provider: CARISSA BACON Report Released Date/Time: Oct 02, 2022 01:51 PM Reporting Lab: [facility] [id number] Performing Lab: [facility] [id number] [facility] LIPID PANEL,NON -FASTING TRIGLYCERID E [MASS/VOLUM E] IN SERUM OR PLASMA 287 mg/dL <149 - 149 10/02 H Specimen Type: PLASMA Comment: Elevated triglycerid e result from a non-fasting specimen should be interpreted with caution. A fasting panel is recommended for accurate triglycerid es when trigs are >200 from a non-fasting specimen. Ordering Provider: CARISSA BACON Report Released Date/Time: Oct 02, 2022 01:51 PM Reporting Lab: [facility] [id number] Performing Lab: [facility] [address] [facility] Vital Signs Combined list of inpatient and outpatient Vital Signs from Department of Defense and Veterans Affairs, ranging from 12 months to all on record, depending upon the facility. Vital Sign Value Date Comments Source SYSTOLIC BLOOD PRESSURE 136 03/03/2024 08:25:13 [facility] DIASTOLIC BLOOD PRESSURE 82 03/03/2024 08:25:13 [facility] PULSE OXIMETRY 97 03/03/2024 08:25:13 [facility] WEIGHT 205.6 03/03/2024 08:25:13 [facility] BMI 30kg/m2 03/03/2024 08:25:13 [facility] PAIN 0 03/03/2024 08:25:13 [facility] TEMPERATURE 97.7 03/03/2024 08:25:13 [facility] PULSE 63 03/03/2024 08:25:13 [facility] RESPIRATION 16 03/03/2024 08:25:13 [facility] SYSTOLIC BLOOD PRESSURE 124 10/01/2023 08:21:24 [facility] DIASTOLIC BLOOD PRESSURE 82 10/01/2023 08:21:24 [facility] PULSE OXIMETRY 97 10/01/2023 08:21:24 [facility] WEIGHT 206.1 10/01/2023 08:21:24 [facility] BMI 30kg/m2 10/01/2023 08:21:24 [facility] PAIN 0 10/01/2023 08:21:24 [facility] HEIGHT 70 10/01/2023 08:21:24 [facility] TEMPERATURE 97.7 10/01/2023 08:21:24 [facility] PULSE 66 10/01/2023 08:21:24 [facility] RESPIRATION 17 10/01/2023 08:21:24 [facility] Encounters Combined list of: 1) Encounters from Department of Veterans Affairs facilities going back up to thelast 18 months. 2) Encounters from the Department of Defense facilities going back up to 280 months. Location Location Details Encounter Type Encounter Number Reason For Visit Attending Provider ADM Date DC Date Status Disposition Source [place] [facility] ECG MONIT/REPR T UP TO 48 HRS [id number] Diagnos is: ICD-10- CM Z13.6 Encount er for screeni ng for cardiov ascular disorde rs
BROCK FERRIS REL 10/13 [facility] Outpatient Encounter [id number] 10/13 [place] [facility] [place] [id number] Diagnos is: ICD-10- CM Z23 Encount er for immuniz ation<b r/> WE[facility] 12/11 [facility] [place] [facility] Outpatient Encounter [id number] 02/05 [place] [facility] [place] [facility] Outpatient Encounter [id number] 02/16 [place] [facility] OFFICE O/P EST LOW 20-29 MIN [id number] Diagnos is: ICD-10- CM R00.2 Palpita tions<b r/> BACON,GANG A S 02/16 [facility] [place] [facility] Outpatient Encounter [id number] Diagnos is: ICD-10- CM R00.2 Palpita tions<b r/> BINAAB JONESCristal L 02/18 [facility] [place] [facility] Outpatient Encounter [id number] COLLIN BAUTISTA 02/19 [place] [facility]P EST LOW 20 MIN [id number] Diagnos is: ICD-10- CM Z00.01 Encount er for general adult medical exam w abnorma l finding s
BACON,GANG A S 09/30 [facility] [place] [facility] Outpatient Encounter [id number] 01/02 [place] [facility] [place] [facility] Outpatient Encounter [id number] AMANDA LANDAVERDE 01/03 [place] [facility] [place] [facility] Outpatient Encounter [id number] MEDAMANDA ALCANTARA 01/03 [facility] [place] [facility] OFFICE O/P EST MOD 30 MIN [id number] Diagnos is: ICD-10- CM E29.1 Testicu lar hypofun ction<b r/> ELIS ZAMORA 03/03 [facility] [place] [facility] Outpatient Encounter [id number] 03/23 [facility] Social History Combined list of available smoking, tobacco, and other social history from Department of Defense and Veterans Affairs facilities. Social History Type Response Date Comment Sourc e Tobacco smoking status [facility] NEVER USED 10/01/19 [facility] History of tobacco use [place]-TO[place]AC[place] FORMER USER 10/02/2022 [facility] History of tobacco use [place]-TO[place]ACCO FORMER USER 10/03/2021 [facility] This section is an empty social history section. DoD Plan of Care List of future care activities from Department of Veterans Affairs facilities. Additional future care activities may be listed in the Assessment and Plan section. Date/Time Care Activity Care Activity Detail Facili ty 06/29/2024 AMBULATORY - MEDICINE AMBULATORY - MEDICI NE [facility] 09/29/2024 AMBULATORY - MEDICINE AMBULATORY - MEDICI NE [facility]
--- OUTSIDE RECORDS SUMMARY | 2024-04-16 18:57 | XMS_ITS | Encounter Summary ---
Author Organization [facility] Address [address] [place] [address] Care Team Providers Care Client Relations Specialist Name Role Phone David Ventura MD Primary Care Provider [phone] David Ventura MD Unavailable [phone] Encounter Details Date Type Department Care Team (Late st Contact Info) Description 10/28/2018 [facility] Medical Advice [address] [address] Estelle Beard APRN [facility] [address] [place] [address] Social History Tobacco Use Types Packs/Day Years [...] on filedocumented in this encounter Care Teams Client Relations Specialist Relationship Specialty Start Date End Date David Ventura MD PCP - General Family Practice 03/14/14 05/17/22 [place] [address] [place] [address] Assigned PCP 11/15/13 04/03/22 documented as of this encounter
--- OUTSIDE RECORDS SUMMARY | 2024-04-16 18:57 | XMS_ITS | Referral Summary ---
Author Organization [facility] Address [address] [place] [address] Care Team Providers Care Neurology Physician Name Role Phone Unavailable Primary Care Provider [...] Total Score(s): No flowsheet data found. Last [facility] website verification: none [email or web address] Midline low back pain with s ciatica, [...] QUADRIVALENT W/PRESERVATIVES) 05/31/2018 TDAP Vaccine (Adacel) 01/25/2019,08/15/2008 Social History Tobacco Use Types Packs/Day Years [...] Comments Blood Pressure 136/86 08/05/2019 3:40 PM MEDICAL INSURANCE CLAIMS SPECIALIST Pulse 90 08/05/2019 3:40 PM MEDICAL INSURANCE CLAIMS SPECIALIST Temperature 37.5 ??C (99.5 ??F) 08/05/2019 3:40 PM CS T Respiratory Rate 16 08/05/2019 3:40 PM MEDICAL INSURANCE CLAIMS SPECIALIST Oxygen Saturation 100% 08/05/2019 3:40 PM MEDICAL INSURANCE CLAIMS SPECIALIST Inhaled Oxygen Concentration - - Weight 91.6 kg (202 lb) 08/05/2019 3:40 PM MEDICAL INSURANCE CLAIMS SPECIALIST Height 177.8 cm (5' 10) 04/10/2019 1:45 PM CDT Body Mass Index 28.98 04/10/2019 1:45 PM CDT Plan of Treatment Not on file Medical Devices Implanted Type Area Music Sound Light Technician Device Identifier Shelf Expiration Date Model / Serial / Lot Graft Bone Foam Pack Vitoss 5ml Bio Active Implanted:Qty : 1 on 10/31/2015 by Greg Zuniga MD at [facility] N/A: Spine Lumbar ORTHOVITA 02/15/[id number] / / [id number] Impulse Implanted:Qty : 1 on 10/31/2015 by Greg Zuniga MD at [facility] N/A: Spine Lumbar Graft Bone Crush Canc 15ml [id number] Implanted:Qty : 1 on 10/31/2015 by Greg Zuniga MD at [facility] N/A: Spine Lumbar [employer] 07/02/2018 [id number] / [id number] / Graft Allograft Nucel Xl 2.5ml Nc-[id number] Implanted:Qty : 1 on 10/31/2015 by Greg Zuniga MD at [facility] N/A: Spine Lumbar [employer] 03/21/2016 NC-1003 / [id number] / Imp Cage Strk [place]-L [id number] Implanted:Qty : 1 on 10/31/2015 by Greg Zuniga MD at [facility] N/A: Spine Lumbar [employer] [id number] / / [id number] Imp Scr Strk Bone [place]-L 6.0x30mm [id number] Implanted:Qty : 3 on 10/31/2015 by Greg Zuniga MD at [facility] N/A: Spine Lumbar [employer] [id number] / / [id number] Imp Plate Strk [employer]-L Locking [id number] Implanted:Qty : 1 on 10/31/2015 by Greg Zuniga MD at [facility] N/A: Spine Lumbar [employer] [id number] / / [id number] 7.5mm X 50 Mmes2 Short Screw Implanted:Qty : 2 on 10/31/2015 by Greg Zuniga MD at [facility] N/A: Spine Lumbar CATHY / / [id number] 40mm Vahid Implanted:Qty : 1 on 10/31/2015 by Greg Zuniga MD at [facility] N/A: Spine Lumbar CATHY [id number] / / [id number] Blockers Implanted:Qty : 2 on 10/31/2015 by Greg Zuniga MD at [facility] N/A: Spine Lumbar [employer]ATH[employer] [id number] / / [id number] Advance Directives For more information, please contact: [phone] * Full Code (Latest Code Status on File) Date Activated Date Inactivated Comments 10/31/2015 1:34 PM 11/01/2015 10:52 PM
--- OUTSIDE RECORDS SUMMARY | 2024-04-16 18:57 | XMS_ITS | Clinical Summary ---
Author Organization [facility] Address [place], [place] [address] Care Team Providers Care Cold Roller Name Role Phone Keith Monroe MD Primary Care Provider [phone] Allergies Active Allergy Reactions Criticality Noted Date Comments Esomeprazole Magnesium *Unknown 11/29/2003 nexium-rash Esomeprazole Rash 01/16/2021 Omeprazole Rash Low 01/29/2014 Medications Medication Sig Dispensed Refills Start Date End Date Status sucralfate (CARAFATE) 1 gram tabletIndications:Ba rrett's esophagus with high grade dysplasia Take 1 Tablet (1 g) by mouth 3 times daily before meals. 90 Tablet 11 01/16/2021 Active Additional Information Patient taking differently:1 g OralTHREE TIMES DAILY WITH MEALS, Reported on 11/19/2021 RABEprazole (ACIPHEX) 20 mg tabletIndications:er osive esophagitis Take 20 mg by mouth 2 times daily. Active testosterone cypionate (DEPO-TESTOSTERONE) 200 mg/mL injection Inject 100 mg intramuscular every 4 weeks. 08/01/2021 Active simvastatin (ZOCOR) 20 mg tablet Take 20 mg by mouth at bedtime. 09/19/2021 Active acetaminophen (TYLENOL) 325 mg tabletIndications:Hi atal hernia Take 2 Tablets (650 mg) by mouth every 4 hours if needed for Pain (For mild pain.). Max acetaminophen dose: 4000mg in 24 hrs. 0 11/20/2021 Active ondansetron (ZOFRAN ODT) 4 mg disintegrating tabletIndications:Hi atal hernia Place 1 Tablet (4 mg) on the tongue every 8 hours if needed for Nausea/Vomiting. 10 Tablet 11/20/2021 Active oxyCODONE (ROXICODONE) 5 mg immediate release tabletIndications:Hi atal hernia Take 1 Tablet (5 mg) by mouth every 4 hours if needed for moderate to severe pain. 12 Tablet 11/20/2021 Active polyethylene glycol (MIRALAX; GLYCOLAX) 17 g powder for solutionIndications: Hiatal hernia Take 17 g by mouth or nasogastric tube once daily if needed for Constipation. 0 11/20/2021 Active valsartan (DIOVAN) 80 mg tabletIndications:Hy pertension Take 1 Tablet (80 mg) by mouth 2 times daily. 0 11/20/2021 Active amLODIPine (NORVASC) 10 mg tabletIndications:Co ronary artery disease, unspecified vessel or lesion type, unspecified whether angina present, unspecified whether beaver or transplanted heart Take 1 Tablet (10 mg) by mouth once daily. 60 Tablet 3 06/09/2023 Active Active Problems Problem Noted Date Diagnosed Date Hyperlipidemia 11/20/2021 Hypertension 11/20/2021 Hypogonadism male 11/20/2021 Gastro-esophageal reflux disease with esophagiti s 12/19/2018 Drew's esophagus 12/15/2018 Hiatal hernia Social History Tobacco Use Types Packs/Day Years Used Date Smoking Tobacco: Former Smokeless Tobacco: Never Alcohol Use Standard Drinks/Week Comments Yes 0 (1 standard drink = 0.6 oz pur e alcohol) occassional Social Connections Answer Date Recorded Frequency of Communication with Friends and Fami ly Not on file 05/14/2023 Sex and Gender Information Value Date Recorded Sex Assigned at Not on file Gender Identity Not on file Sexual Orientation Not on file Obstetrics History Last Filed Vital Signs Vital Sign Reading Time Taken Comments Blood Pressure 145/100 11/20/2021 3:00 PM CDT Pulse 61 11/20/2021 5:12 AM CDT Temperature 36.8 ??C (98.3 ??F) 11/20/2021 8:45 AM CD T Respiratory Rate 18 11/20/2021 8:45 AM CDT Oxygen Saturation 94% 11/20/2021 8:45 AM CDT Inhaled Oxygen Concentration - - Weight 90.3 kg (199 lb 1.6 oz) 11/19/2021 7:11 A M CDT Height 180.3 cm (5' 11) 11/19/2021 7:11 AM CDT Body Mass Index 27.77 11/19/2021 7:11 AM CDT Plan of Treatment Health Maintenance Due Date Last Done Comments Tdap 1977 Depression screening for age 12+ 1978 HIV for age 15-65 1981 Hepatitis C screening for ag e 18-79 1984 Tetanus booster 1986 Colonoscopy through age 75 2011 Lipids for age 45-75 2011 Zoster (shingles) series for age 50+ (1 of 2) 2016 BMI (ht and wt on same day) for age 18+ 06/05/2022 06/05/2021 COVID-19 vaccine series (2023- season) 2024 Influenza for age 50-64 03/19/2024 Pneumococcal series for age 6-64 Aged Out No longer eligible based on patient's age to complete this topic Advance Directives * Full Code (Latest Code Status on File) Date Activated Date Inactivated Comments 11/19/2021 12:18 PM 11/20/2021 6:55 PM Question Answer Comments Code Status Discussion: Reviewed Preferences * Full Code Date Activated Date Inactivated Comments 11/19/2021 6:56 AM 11/19/2021 12:18 PM Question Answer Comments Code Status Discussion: Unable to Assess Preferences, Provider to review later * Full Code Date Activated Date Inactivated Comments 09/25/2021 7:30 AM 09/25/2021 12:00 PM Question Answer Comments Code Status Discussion: Unable to Assess Preferences, Provider to review later * Full Code Date Activated Date Inactivated Comments 06/19/2021 10:52 AM 06/19/2021 2:17 PM Question Answer Comments Code Status Discussion: Unable to Assess Preferences, Provider to review later * Full Code Date Activated Date Inactivated Comments 03/27/2021 9:26 AM 03/28/2021 2:33 AM Question Answer Comments Code Status Discussion: Not Discussed Care Teams Cold Roller Relationship Specialty Start Date End Date Keith Monroe MD [address] [place] [address] PCP - General Family Practice 05/30/21
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
--- OUTSIDE RECORDS SUMMARY | 2024-04-16 18:58 | XMS_ITS | Encounter Summary ---
Author Organization [place] Address [address] [place] [address] Care Team Providers Care Entrepreneurship Program Director Name Role Phone David Ventura MD Primary Care Provider + [phone] David Ventura MD Unavailable [phone] David Ventura MD Unavailable [phone] Encounter Details Date Type Department Care Team (Late st Contact Info) Description 06/26/2015 MyC Medical Advice [address] [phone] Myra Villalpando Social History Tobacco Use Types Packs/Day Years [...] on filedocumented in this encounter Care Teams Entrepreneurship Program Director Relationship Specialty Start Date End Date David Ventura MD PCP - General Family Practice 03/14/14 05/17/22 [place] [address] [place] [address] PCP - Assigned PCP 11/15/13 09/20/18 [place] [address] [place] [address] Assigned PCP 11/15/13 04/03/22 documented as of this encounter
--- OUTSIDE RECORDS SUMMARY | 2024-04-16 18:58 | XMS_ITS | Encounter Summary ---
Author Organization [place] Address [address] [place] [address] Care Team Providers Care Tooth Cutter Spur Name Role Phone David Ventura MD Primary Care Provider [phone] David Ventura MD Unavailable +[phone] David Ventura MD Unavailable [phone] Reason for Visit * Reason Onset Date Comments MyChart Communication 10/18/2015 Encounter Details Date Type Department Care Team (Late st Contact Info) Description 10/18/2015 MyC Medical Advice [facility] [address] [place] [phone] [place] [address] [place] [address] MyChart Communication Social History Tobacco [...] on filedocumented in this encounter Care Teams Tooth Cutter Spur Relationship Specialty Start Date End Date David Ventura MD PCP - General Family Practice 03/14/14 05/17/22 [place] [address] [place] [address] PCP - Assigned PCP 11/15/13 09/20/18 [place] [address] [place] [address] Assigned PCP 11/15/13 04/03/22 documented as of this encounter
--- OUTSIDE RECORDS SUMMARY | 2024-04-16 18:58 | XMS_ITS | Encounter Summary ---
Author Organization [place] Address [address] [place] [address] Care Team Providers Care Motor Equipment Lieutenant Name Role Phone David Ventura MD Primary Care Provider + [phone] David Ventura MD Unavailable [phone] David Ventura MD Unavailable [phone] Encounter Details Date Type Department Care Team (Late st Contact Info) Description 2015 MyC Medical Advice [facility] [address] [place] [phone] [place] [address] [place] [address] Social History Tobacco Use Types [...] on filedocumented in this encounter Care Teams Motor Equipment Lieutenant Relationship Specialty Start Date End Date David Ventura MD PCP - General Family Practice 03/14/14 05/17/22 [place] [address] [place] [address] PCP - Assigned PCP 11/15/13 09/20/18 [place] [address] [place] [address] Assigned PCP 11/15/13 04/03/22 documented as of this encounter
--- OUTSIDE RECORDS SUMMARY | 2024-04-16 18:58 | XMS_ITS | Encounter Summary ---
Author Organization [place] Address [address] [place] [address] Care Team Providers Care Director Of Group Counseling Program Name Role Phone David Ventura MD Primary Care Provider [phone] David Ventura MD Unavailable [phone] David Ventura MD Unavailable [phone] Reason for Visit * Reason Onset Date Comments MyChart Communication 07/01/2016 Encounter Details Date Type Department Care Team (Late st Contact Info) Description 07/01/2016 MyC Medical Advice [facility] [address] [place] [phone] [place] [address] [place] [address] MyChart Communication Social History Tobacco [...] on filedocumented in this encounter Care Teams Director Of Group Counseling Program Relationship Specialty Start Date End Date David Ventura MD PCP - General Family Practice 03/14/14 05/17/22 [place] [address] [place] [address] PCP - Assigned PCP 11/15/13 09/20/18 [place] [address] [place] [address] Assigned PCP 11/15/13 04/03/22 documented as of this encounter
--- OUTSIDE RECORDS SUMMARY | 2024-04-16 18:58 | XMS_ITS | Encounter Summary ---
Author Organization [place] Address [address] [place] [address] Care Team Providers Care Professor Of Biochemistry Name Role Phone David Ventura MD Primary Care Provider [phone] David Ventura MD Unavailable [phone] David Ventura MD Unavailable [phone] Encounter Details Date Type Department Care Team (Late st Contact Info) Description 06/20/2014 MyC Medical Advice [address] [phone] Estelle Beard APRN [facility] [address] [place], [place] [address] Social History Tobacco Use Types Packs/Day Years Used Date Smoking Tobacco: Former Cigarettes 1 7 0 12/17/1982 - 12/17/1989 Smokeless Tobacco: Never Alcohol Use Standard Drinks/Week Comments Yes 0 (1 standard drink = 0.6 oz pur e alcohol) infrequently - 2 drinks/mo Sex and Gender Information Value Date Recorded Sex Assigned at Not on file Gender Identity Not on file Sexual Orientation Not on file documented as of this encounter Plan of Treatment Not on file documented as of this encounter Visit Diagnoses Not on filedocumented in this encounter Care Teams Professor Of Biochemistry Relationship Specialty Start Date End Date David Ventura MD PCP - General Family Practice 03/14/14 05/17/22 [place] [address] [place] [address] PCP - Assigned PCP 11/15/13 09/20/18 [place] [address] [place] [address] Assigned PCP 11/15/13 04/03/22 documented as of this encounter
--- OUTSIDE RECORDS SUMMARY | 2024-04-16 18:58 | XMS_ITS | Encounter Summary ---
Author Organization [place] Address [address] [place] [address] Care Team Providers Care Product Support Engineer Name Role Phone David Ventura MD Primary Care Provider + [phone] David Ventura MD Unavailable [phone] David Ventura MD Unavailable [phone] Encounter Details Date Type Department Care Team (Late st Contact Info) Description 03/26/2014 [facility] [place] [address] [address] Dannielle Llanes RN Social History Tobacco Use Types Packs/Day Years [...] on filedocumented in this encounter Care Teams Product Support Engineer Relationship Specialty Start Date End Date David Ventura MD PCP - General Family Practice 03/14/14 05/17/22 [place] [address] [address] [facility] [place] [address] PCP - Assigned PCP 11/15/13 09/20/18 [place] [address] [place] [address] Assigned PCP 11/15/13 04/03/22 documented as of this encounter
--- OUTSIDE RECORDS SUMMARY | 2024-04-16 18:58 | XMS_ITS | Encounter Summary ---
Author Organization [place] Address [address] [place] [address] Care Team Providers Care Wide Area Network Administrator Name Role Phone David Ventura MD Primary Care Provider [phone] David Ventura MD Unavailable [phone] David Ventura MD Unavailable [phone] Encounter Details Date Type Department Care Team (Late st Contact Info) Description 10/28/2013 MyC Medical Advice [facility] [address] [place] [phone] [place] [address] [place] [address] Social History Tobacco Use Types [...] on filedocumented in this encounter Care Teams Wide Area Network Administrator Relationship Specialty Start Date End Date David Ventura MD PCP - General Family Practice 03/14/14 05/17/22 [place] [address] [place] [address] PCP - Assigned PCP 11/15/13 09/20/18 [place] [address] [place] [address] Assigned PCP 11/15/13 04/03/22 documented as of this encounter
--- OUTSIDE RECORDS SUMMARY | 2024-04-16 18:58 | XMS_ITS | Encounter Summary ---
Author Organization [place] Address [address] [place] [address] Care Team Providers Care Capacity Planning Manager Name Role Phone David Ventura MD Primary Care Provider [phone] David Ventura MD Unavailable [phone] David Ventura MD Unavailable [phone] Reason for Visit * Reason Onset Date Comments Medication Request 03/26/2014 hydrochloroth iazide 12.5 MG TABS Encounter Details Date Type Department Care Team (Late st Contact Info) Description 03/26/2014 MyC Refill [facility] [address] [place] [phone] [place] [address] [place] [address] Medication Request (hydrochlorothiazide 12... Social History Tobacco Use Types Packs/Day Years [...] encounter Miscellaneous Notes * Telephone Encounter - Estelle Beard RN - 03/28/2014 8:46 AM CDT Medication was suppose to be changed to 25mg per note from provider. New Rx sent in Estelle Beard RN, BSN * Telephone Encounter - Myra Villalpando - 03/26/2014 2:16 PM CDT hydrochlorothiazide 12.5 MG TABS 30 tablet 1 03/14/2014 -- Sig: Take 1 tablet (12.5 mg) by mouth daily Class: E-Prescribe Route: Oral Order: [id number] OV 03/14/2014 Myra Villalpando Energy Project Manager * Telephone Encounter - Myra Villalpando - 03/26/2014 2:15 PM CDTMessage [facility] Original authorizing provider: MD Adelina Rodgers II would like a refill of the following medications: hydrochlorothiazide 12.5 MG TABS [David Ventura MD] Preferred pharmacy: [id number] [id number] JAYDA YOUSSEF Comment: Not sure what you'd like to discuss with me. I stopped in Wednesday for a blood pressure check and themedication seems to be working. I tried calling and spent 15 minutes on hold. I would like the prescription to be for 90 day intervals, if possible. If you would like to try calling me back my or I can answer your questions. [phone]. Thanks, Gerry Nettles documented in this encounter Plan of Treatment Not on file documented as of this encounter Visit Diagnoses Diagnosis Hypertension goal BP (blood pressure) < 140/90 Unspecified essential hypertension documented in this encounter Care Teams Capacity Planning Manager Relationship Specialty Start Date End Date David Ventura MD PCP - General Family Practice 03/14/14 05/17/22 [place] [address] [address] [place] [address] PCP - Assigned PCP 11/15/13 09/20/18 [place] [address] [place] [address] Assigned PCP 11/15/13 04/03/22 documented as of this encounter
--- OUTSIDE RECORDS SUMMARY | 2024-04-16 18:58 | XMS_ITS | Encounter Summary ---
Author Organization [place] Address [address] [place] [address] Care Team Providers Care Candy Separator Hard Name Role Phone David Ventura MD Primary Care Provider [phone] David Ventura MD Unavailable [phone] David Ventura MD Unavailable [phone] Reason for Visit * Reason Onset Date Comments MyChart Communication 10/04/2015 med reques t - prednisone Encounter Details Date Type Department Care Team (Late st Contact Info) Description 10/04/2015 MyC Medical Advice [facility] [address] [place] [phone] [place] [address] [place] [address] MyChart Communication (med request - predn... Social History Tobacco Use Types Packs/Day Years [...] encounter Miscellaneous Notes * Telephone Encounter - Claudia Marroquin RN - 10/04/2015 3:20 PM CDT Pt calls back. Was advised of below. * Telephone Encounter - Claudia Marroquin RN - 10/04/2015 3:13 PM CDT Left a detailed message via [employer] advising of below. * Telephone Encounter - Claudia Marroquin RN - 10/04/2015 1:33 PM CDT Called and left a message to call me back, also sent a mycart. * Telephone Encounter - David Ventura MD - 10/04/2015 1:30 PM CDT Prednisone cannot be taken on an ongoing basis for back pain due to side effects with ongoing use. Also this likely increases his surgical bleeding risk and would not take this prior to surgery (same as ibuprofen). I would recommend taking the oxycodone that he was given for pain prior to surgery. * Telephone Encounter - Claudia Marroquin RN - 10/04/2015 10:[address] Ventura - would you prescribe prednisone for the pt or do you want him to be seen? See mychart below. documented in this encounter Plan of Treatment Not on file documented as of this encounter Visit Diagnoses Not on filedocumented in this encounter Care Teams Candy Separator Hard Relationship Specialty Start Date End Date David Ventura MD PCP - General Family Practice 03/14/14 05/17/22 [place] [address] [address] [address] PCP - Assigned PCP 11/15/13 09/20/18 [place] [address] [place] [address] Assigned PCP 11/15/13 04/03/22 documented as of this encounter
--- OUTSIDE RECORDS SUMMARY | 2024-04-16 18:58 | XMS_ITS | Encounter Summary ---
Author Organization [place] Address [address] [place] [address] Care Team Providers Care Cloth Inspector Name Role Phone David Ventura MD Primary Care Provider [phone] David Ventura MD Unavailable [phone] David Ventura MD Unavailable [phone] Encounter Details Date Type Department Care Team (Late st Contact Info) Description 06/18/2014 MyC Medical Advice [address] [phone] Estelle Beard APRN [facility] [address] [place], [place] [address] Social History Tobacco Use Types Packs/Day Years [...] on filedocumented in this encounter Care Teams Cloth Inspector Relationship Specialty Start Date End Date David Ventura MD PCP - General Family Practice 03/14/14 05/17/22 [place] [address] [place] [address] PCP - Assigned PCP 11/15/13 09/20/18 [place] [address] [place] [address] Assigned PCP 11/15/13 04/03/22 documented as of this encounter
--- OUTSIDE RECORDS SUMMARY | 2024-04-16 18:58 | XMS_ITS | Encounter Summary ---
Author Organization [place] Address [address] [place] [address] Care Team Providers Care Contract Law Specialist Name Role Phone David Ventura MD Primary Care Provider + [phone] David Ventura MD Unavailable [phone] David Ventura MD Unavailable [phone] Encounter Details Date Type Department Care Team (Late st Contact Info) Description 10/04/2014 MyC Medical Advice [facility] [address] [place] [phone] [place] [address] [place] [address] Social History Tobacco Use Types [...] on filedocumented in this encounter Care Teams Contract Law Specialist Relationship Specialty Start Date End Date David Ventura MD PCP - General Family Practice 03/14/14 05/17/22 [place] [address] [place] [address] PCP - Assigned PCP 11/15/13 09/20/18 [place] [address] [place] [address] Assigned PCP 11/15/13 04/03/22 documented as of this encounter
--- OUTSIDE RECORDS SUMMARY | 2024-04-16 18:58 | XMS_ITS | Encounter Summary ---
Author Organization [place] Address [address] [place] [address] Care Team Providers Care Head Rose Grower Name Role Phone David Ventura MD Primary Care Provider [phone] David Ventura MD Unavailable [phone] David Ventura MD Unavailable [phone] Encounter Details Date Type Department Care Team (Late st Contact Info) Description 10/26/2013 [facility] Medical Advice [facility] [address] [place] [phone] [place] [address] [place] [address] Social History Tobacco Use Types [...] on filedocumented in this encounter Care Teams Head Rose Grower Relationship Specialty Start Date End Date David Ventura MD PCP - General Family Practice 03/14/14 05/17/22 [place] [address] [place] [address] PCP - Assigned PCP 11/15/13 09/20/18 [place] [address] [place] [address] Assigned PCP 11/15/13 04/03/22 documented as of this encounter
--- OUTSIDE RECORDS SUMMARY | 2024-04-16 18:58 | XMS_ITS | Encounter Summary ---
Author Organization [place] Address [address] [place] [address] Care Team Providers Care Outsoles Channel Opener Name Role Phone David Ventura MD Primary Care Provider [phone] David Ventura MD Unavailable [phone] David Ventura MD Unavailable [phone] Reason for Visit * Reason Onset Date Comments MyChart Communication 09/09/2016 Encounter Details Date Type Department Care Team (Late st Contact Info) Description 09/09/2016 MyC Medical Advice [facility] [address] [place] [phone] [place] [address] [place] [address] MyChart Communication Social History Tobacco [...] on filedocumented in this encounter Care Teams Outsoles Channel Opener Relationship Specialty Start Date End Date David Ventura MD PCP - General Family Practice 03/14/14 05/17/22 [place] [address] [place] [address] PCP - Assigned PCP 11/15/13 09/20/18 [place] [address] [place] [address] Assigned PCP 11/15/13 04/03/22 documented as of this encounter
--- OUTSIDE RECORDS SUMMARY | 2024-04-16 18:58 | XMS_ITS | Encounter Summary ---
Author Organization [place] Address [address] [place] [address] Care Team Providers Care Metal Fabricating Supervisor Name Role Phone David Ventura MD Primary Care Provider + [phone] David Ventura MD Unavailable [phone] David Ventura MD Unavailable [phone] Encounter Details Date Type Department Care Team (Late st Contact Info) Description 10/26/2013 [facility] [place] [address] [phone] Myra Villalpando Social History Tobacco [...] on filedocumented in this encounter Care Teams Metal Fabricating Supervisor Relationship Specialty Start Date End Date David Ventura MD PCP - General Family Practice 03/14/14 05/17/22 [place] [address] [place] [address] PCP - Assigned PCP 11/15/13 09/20/18 [place] [address] [place] [address] Assigned PCP 11/15/13 04/03/22 documented as of this encounter
--- OUTSIDE RECORDS SUMMARY | 2024-04-16 18:58 | XMS_ITS | Encounter Summary ---
Author Organization [place] Address [address] [place] [address] Care Team Providers Care Venetian Blind Assembler Name Role Phone David Ventura MD Primary Care Provider [phone] David Ventura MD Unavailable [phone] David Ventura MD Unavailable [phone] Reason for Visit * Reason Onset Date Comments Refill Request 10/01/2015 tramadol Refill Request 05/23/2019 Refill Request 07/05/2019 Refill Request 08/12/2020 Refill Request 11/20/2020 Encounter Details Date Type Department Care Team (Late st Contact Info) Description 10/01/2015 [facility] [address] [place] [phone] [place] [address] [place], [place] [id number] Refill Request (tramadol); Refill Request; Refill Request; Refill Request; Refill Request Social History Tobacco Use Types Packs/Day Years [...] Telephone Encounter - David Ventura MD - 10/02/2015 7:04 AM CDT Per his spine provider he was to have an updated MRI and follow up with them, is he doing this? Refilled, follow-up with spine provider. * Telephone Encounter - Estelle Beard RN - 10/01/2015 8:39 AM CDT PRINTED CIRCUIT BOARDS LAMINATOR checked and no unaccounted rx's Estelle Beard RN, BSN * Telephone Encounter - Aaron Fletcher - 10/01/2015 8:27 AM CDT Pending Prescriptions: Disp Refills traMADol (ULTRAM) 50 MG tablet 30 tab*0 Sig: Take 1 tablet (50 mg) by mouth every 6 hours as needed for moderate pain Controlled Substance Refill Request for Tramadol Problem List Complete: No PROVIDER TO CONSIDER COMPLETION OF PROBLEM LIST AND OVERVIEW/CONTROLLED SUBSTANCE AGREEMENT Last Written Prescription Date: 09/17/2015 Last Fill Quantity: 30, # refills: 0 Last Office Visit with [facility] primary care provider: 07/30/2015 Future Office visit: Next 5 appointments (look out 90 days) Oct 10, 2015 6:00 PM Pre-Op physical with Adrian Chen MD [facility] [address] [place] [phone] Controlled substance agreement on file: No. Processing: Fax Rx to [facility] PRINTED CIRCUIT BOARDS LAMINATOR checked in past 6 months? No, route to NABEEL Fletcher XRT documented in this encounter Plan of Treatment Not on file documented as of this encounter Visit Diagnoses Diagnosis Lumbar radiculopathy- Primary Thoracic or lumbosacral neuritis or radiculitis, unspecified documented in this encounter Care Teams Venetian Blind Assembler Relationship Specialty Start Date End Date David Ventura MD PCP - General Family Practice 03/14/14 05/17/22 [place] [address] [place] [address] PCP - Assigned PCP 11/15/13 09/20/18 [place] [address] [place] [address] Assigned PCP 11/15/13 04/03/22 documented as of this encounter
== END 2024-04-13 08:13 | disposition home or self-care (01) ==
LOC: NFLDREF 04-16 18:56
PROVIDERS: PCP Family Medicine; Referring Provider Family Medicine; Visit Provider Family Medicine
DX: E29.1 Testicular hypofunction (principal); I10 Essential (primary) hypertension
CPT/HCPCS: 80053; 84270; 84402; 84403

== ENCOUNTER 2024-09-18 07:57 | Outpatient (CLI) | payer BC, SELFPAY | END 2024-09-18 07:58 | disposition home or self-care (01) | LOC: NFLDREF 09-19 21:44 | PROVIDERS: PCP Family Medicine; Referring Provider Family Medicine; Visit Provider Family Medicine | DX: E29.1 Testicular hypofunction (principal) | CPT/HCPCS: 84270; 84402; 84403 ==

== ENCOUNTER 2025-01-23 08:05 | Outpatient (CLI) | payer BC, SELFPAY | END 2025-01-23 08:06 | disposition home or self-care (01) | LOC: NFLDREF 01-25 11:59 | PROVIDERS: PCP Family Medicine; Referring Provider Family Medicine; Visit Provider Family Medicine | DX: E29.1 Testicular hypofunction (principal); R53.83 Other fatigue; D64.9 Anemia, unspecified; Z12.5 Encounter for screening for malignant neoplasm of prostate | CPT/HCPCS: 80076; 84270; 84402; 84403; G0103 ==

== ENCOUNTER 2025-04-24 08:00 | Outpatient (CLI) | payer BC, SELFPAY | END 2025-04-24 08:01 | disposition home or self-care (01) | LOC: NFLDREF 04-26 12:12 | PROVIDERS: PCP Family Medicine; Referring Provider Family Medicine; Visit Provider Family Medicine | DX: R53.83 Other fatigue (principal); E29.1 Testicular hypofunction; I10 Essential (primary) hypertension; E78.00 Pure hypercholesterolemia, unspecified; K22.711 Barrett's esophagus with high grade dysplasia | CPT/HCPCS: 80053; 84270; 84402; 84403 ==